=== PATIENT | male | born 1985 | race Two or more races ===

== ENCOUNTER 2021-04-02 07:59 | Emergency (ER) | payer MEDICAID, SELFPAY ==
[2021-04-02 08:02] VITALS: BP 133/86; PULSE 89; RESP 16; TEMP 36.5; O2SAT 99; BMI 30.7
[2021-04-02 09:46] VITALS: BP 138/92; PULSE 71; RESP 16; O2SAT 99
--- NOTE | 2021-04-02 09:48 | ED_ITS ---
HPI - Headache General Chief Complaint: Headache Stated Complaint: headache Time Seen by Provider: 04/02/21 09:30 Source: patient and synthetic cloth binding cutter Mode of arrival: ambulatory Limitations: language barrier History of Present Illness HPI Narrative: 35 yo male previously healthy here with complaints or right sided RIVERA x 1 week with photophobia. NO vision changes, phonophobia, nausea, vomiting, URI symptoms, sinus pressure or pain. Using naproxen, baclofen for pain in lower back prescribed by outpatient provider with continued pain. Related Data Previous Rx's Medication Instructions Recorded pdoavtmccx-gdazzhqzeamap-dzqdqjvd 1 cap PO Q6H PRN #10 cap 04/02/21 50 mg-300 mg-40 mg capsule (Fioricet) Allergies Allergy/AdvReac Type Severity Reaction Status Date / Time No Known Allergies Allergy Unverified 04/22/20 19:41 [No Known Allergies*] Review of Systems Review of Systems: Yes all other systems are reviewed and are negative Constitutional: Constitutional: Reports no additional constitutional complaints, Denies body ache(s), Denies chills, Denies fever(s), Reports headache(s) and Denies weakness Eyes: Eyes: Reports no additional eye complaints, Denies change in vision and Reports photophobia ENT: Reports system reviewed and no additional complaints, except as documented, Denies dizziness, Reports headache(s), Denies nasal congestion, Denies nasal discharge and Denies neck pain Cardiovascular: Cardiovascular: Reports no additional cardiovascular complaints, Denies chest pain, Denies leg edema and Denies dyspnea Respiratory: Respiratory: Reports no additional respiratory complaints, Denies cough and Denies dyspnea Gastrointestinal: Gastrointestinal: Reports no additional gastrointestinal complaints, Denies abdominal pain, Denies diarrhea, Denies nausea and Denies vomiting Genitourinary: Genitourinary: Denies urinary incontinence Musculoskeletal: Musculoskeletal: Reports no additional musculoskeletal complaints, Denies back pain, Denies arthralgias, Denies joint swelling, Denies neck pain, Denies numbness and Denies tingling Integumentary/Breasts: Skin/Breast: Reports system reviewed and no additional complaints, except as docu and Denies rash Neurologic: Reports system reviewed and no additional complaints, except as documented, Denies Abnormal speech present, Denies dizziness, Reports headache(s), Denies numbness, Denies tingling and Denies weakness PMFSH Past Medical History Attestation statement: The following information was validated with the patient. Source: old records reviewed and nursing notes reviewed Medical History No known health problems Social History Social History Patient Tobacco Use Status: Current everyday Tobacco user Smoked in Last 30 Days: Yes Use of substances other than those prescribed or required for medical reasons: No Advance Directives: Yes Advance Directives Information Provided: Yes Advance Directives on File: No Physical Exam Vital Signs: Vital Signs: Last Vital Signs Temp 97.7 F 04/02/21 08:02 Pulse 71 04/02/21 09:46 Resp 16 04/02/21 09:46 BP 138/92 H 04/02/21 09:46 Pulse Ox 99 04/02/21 09:46 Body Mass Index 30.7 Const: General: cooperative, healthy appearing, comfortable and no acute distress Orientation/consciousness: patient oriented x3 Limitations: no limitations HENMT: Other: no temporal artery tenderness Head: Yes normal to inspection Ears: hearing grossly normal bilaterally, TM's normal bilaterally, mastoids normal and no periauricular adenopathy General nose exam: Normal external nose present Face and sinus: Yes normal facial exam Mouth: Normal oral and palatal mucosa present, lip normal and tongue normal Throat: Yes posterior oropharynx normal Eyes: General: appearance normal, both eyes and all related structures Pupils: Equal, round and reactive pupils present Direct Ophthalmoscopy: photophobia Neck: Neck: Yes normal visual inspection, Yes full ROM, Yes no lymphadenopathy and Yes no meningeal signs Chest: Chest palpation & inspection: normal inspection of the chest Resp: Effort & Inspection: normal respiratory effort Auscultation: clear to auscultation bilaterally Cardio: Rate: regular rate Rhythm: regular rhythm Peripheral pulses: Peripheral pulses 2+ throughout GI: Inspection: Yes normal to inspection Palpation (GI): Soft to palpation and nontender Auscultation: normal bowel sounds Back/Spine/Pelvis: Thoracic/Lumbar Spine: thoracic and lumbar spine normal to inspection Skin: General skin exam: no rashes or lesions noted Neuro: General: patient oriented x3, no meningeal signs, no focal motor deficits and normal sensation to monofilament Cranial nerves: Yes CN's II-XII intact bilaterally, Yes Equal, round and reactive pupils present, Yes Bilaterally intact EOM present, Yes Nystagmus not present, Yes Normal facial strength present and Yes Midline tongue present Cognition (Neuro): normal cognition Speech: No Abnormal speech present Gait exam (Neuro): Normal gait present Motor exam (neuro): 5/5 motor strength present throughout Sensory Exam: Normal double simultaneous stimulation for sensation Extrem: General: Yes normal to inspection Course Course Course Narrative: 35 yo male here with continued right sided RIVERA with photophobia x 1 week. Normal neuro exam. Likely migraine. Will trial PO fiorcet and re-ass ess. 1100-Continued pain despite oral medications. Will place PIV and give NSB, reglan, benadryl and toradol. 1300-headache is resolved. Tolerating p.o.. Feels much improved. Likely migraine. Reviewed worrisome signs and symptoms when to return to the emergency department. Comfortable discharge home MDM - Headache Differential Diagnosis Differential diagnosis: Likely migraine and tension headache Medical Records Attestation: I reviewed the patient's medical records. Lab Data Attestation: I reviewed the patient's lab results. Discharge Plan Discharge Clinical Impression: Migraine Patient Disposition: Home, Self-Care Instructions: Migraine Headache (ED) Prescriptions: New qghdcohbwr-trwzapxfdptsu-gnva [Fioricet] 50-300-40 mg capsule 1 cap PO Q6H PRN (Reason: pain) Qty: 10 RF: 0 Referrals: [place] [Primary Care Provider] - 2 days (as needed) Print Language: Kenyan
[2021-04-02] MEDS: Butalb/Acetamin/Caff 50/325/40 TABLET 2 TAB PO (09:49)
[2021-04-02] MEDS: 0.9 % Sodium Chloride 1,000 ML 999 ML IV (11:26)
[2021-04-02] MEDS: Metoclopramide HCl 10 MG/2 ML VIAL IVPUSH (11:27)
[2021-04-02] MEDS: diphenhydrAMINE HCL 50 MG/ML VIAL 25 MG IVPUSH (11:27)
[2021-04-02] MEDS: Ketorolac Tromethamine 15 MG/ML VIAL 30 MG IVPUSH (11:27)
== END 2021-04-02 13:30 | disposition home or self-care (01) ==
PROVIDERS: Emergency Provider Emergency Medicine
DX: G43.909 Migraine, unspecified, not intractable, without status migrainosus (principal); F17.210 Nicotine dependence, cigarettes, uncomplicated
CPT/HCPCS: 96361; 96374; 96375; 99284; J1200; J1885; J2765

== ENCOUNTER 2021-08-18 14:00 | Outpatient (RCR) | payer MEDICAID, SELFPAY | END 2021-10-04 09:23 | disposition home or self-care (01) | LOC: HO.PT 14:00 | PROVIDERS: PCP Internal Medicine; Visit Provider Emergency Medicine | DX: M54.41 Lumbago with sciatica, right side (principal) | CPT/HCPCS: 97110; 97112; 97161; 97530 ==

== ENCOUNTER 2022-03-29 04:31 | Emergency (ER) | payer MEDICAID, SELFPAY ==
--- NOTE | ~2022-03-29 | US_ITS ---
EXAMINATION: US SCROTUM CLINICAL INFORMATION: Lump of left scrotum. COMPARISON: None TECHNIQUE: A sonogram of the scrotum was performed assessing bartlett-scale appearance and color Doppler flow. Spectral Doppler analysis of the arterial and venous flow were performed in the testes bilaterally. FINDINGS: The testicles have normal contour and echotexture. No testicular microlithiasis or mass. The right testicle measures 4.1 x 2 x 2.6 cm and left testicle 3.7 x 2.3 x 2.8 cm. The color Doppler images with spectral waveforms show presence of normal symmetric arterial and venous flow within each testicle. Incidentally noted is a small appendix of the epididymis in the right scrotum. No right-sided scrotal mass. A small cyst measuring up to 0.4 cm maximum dimension is present in the left epididymal head. Otherwise, the left and epididymis are unremarkable. Small left hydrocele is present. No evidence of a mass or hypervascularity along the left spermatic cord, which corresponds to the region of palpable concern according to the cardiac cath technologist. No scrotal hernia is seen. US/US scrotum IMPRESSION: * The testicles are normal. * Small cyst in the left epididymal head. * Small left-sided hydrocele is present.
[2022-03-29 04:42] VITALS: BP 137/75; PULSE 76; RESP 20; TEMP 37.2; O2SAT 98; BMI 70.4
[2022-03-29 06:38] LABS: Hematocrit 46.1 % (42.0-52.0); Hemoglobin 15.6 g/dl (14.0-18.0); Mean Corpuscular HGB Conc 33.8 g/dl (31.0-36.0); Mean Corpuscular Hemoglobin 29.4 pg (27.0-33.0); Mean Platelet Volume 9.5 fL (9.4-12.4); Platelet Count 365 X10*3/uL (160-400); Red Cell Distribution Width 13.2 % (11.0-16.0); White Blood Count 11.9 X10*3/uL (4.8-10.8)
[2022-03-29 06:55] LABS: Alanine Aminotransferase 25 U/L (0-40); Albumin Level 4.3 g/dL (3.5-5.0); Alkaline Phosphatase 71 U/L (39-117); Anion Gap 15 (12-20); Aspartate Amino Transferase 15 U/L (5-37); Bilirubin Total < 0.2 mg/dL (0.0-1.0); Blood Urea Nitrogen 12 mg/dL (9-16); Calcium 9.6 mg/dL (8.4-10.2); Carbon Dioxide 24 mmol/L (22-29); Chloride 103 mmol/L (96-108); Creatinine Clr Calc Pharmacy 209.1; Estimated Glomerular Filt Rate > 60; Glucose Random 97 mg/dL (60-115); Potassium 3.9 mmol/L (3.3-5.1); Sodium 138 mmol/L (135-145); Total Protein 7.8 g/dL (6.5-8.0)
--- NOTE | 2022-03-29 10:27 | ED.GENADULT ---
HPI - General Adult General Chief complaint: General Medical Stated complaint: Abd pain Time Seen by Provider: 03/29/22 09:18 Source: patient Mode of arrival: ambulatory Limitations: language barrier ( Northern Irish-speaking certified medical assistant utilized) History of Present Illness HPI narrative: patient presents to the emergency department for evaluation of a lump to his left scrotum. He states it is only felt when he touches the scrotum. First noticed this about 3-4 days ago. Denies any pain, swelling, redness, rash, lesions, inability to urinate, abnormal penile discharge, concern for sexually transmitted infections. Denies any prior history of similar in the past. Related Data Previous Rx's Medication Instructions Recorded spmdkmhssc-zydwokidadhqd-xnwtzxmo 1 cap PO Q6H PRN pain #10 caps 04/02/21 50 mg-300 mg-40 mg capsule (Fioricet) Allergies Allergy/AdvReac Type Severity Reaction Status Date / Time No Known Allergies Allergy Unverified 04/22/20 19:41 [No Known Allergies*] Review of Systems Review of Systems: Genitourinary: positive scrotal lump Yes all other systems are reviewed and are negative [facility], [facility] Past Medical History Attestation statement: The following information was validated with the patient. Source: old records reviewed Medical History No known health problems Social History Social History Alcohol intake: never Patient Tobacco Use Status: Current everyday Tobacco user Use of substances other than those prescribed or required for medical reasons: No Advance Directives: No Advance Directives Information Provided: No Physical Exam ED Vital Signs: Vital Signs - 24 hr 03/29/22 04:42 03/29/22 11:32 Temperature 99.0 F 97.8 F Pulse Rate 76 72 Respiratory Rate 20 17 Blood Pressure 137/75 128/82 Pulse Oximetry 98 96 Oxygen Delivery Method Room Air Room Air BMI result Body Mass Index 70.4 Appearance: Alert.?Oriented to person, place and time. No acute distress.?Normal affect. Eyes: Pupils equal, round and reactive to light.? ENT: Pharynx normal.?? Neck: Normal inspection.? Neck supple.?? CVS: Heart sounds normal. Normal heart rate and rhythm.? Pulses normal.?? Respiratory: No respiratory distress.? Lung sounds clear to auscultation bilaterally?? Abdomen: Soft and non-tender. Normoactive bowel sounds. genitourinary: ED RN Gustavo for tire assembler, 2cm palpable soft mobile nontender lump to the left scrotum Skin: Skin warm and dry.? Normal skin color.? Extremities: No lower extremity edema.? Neuro: Moves all extremities spontaneously. Sensation intact bilaterally. Ambulates with normal steady gait. Course Course Course Narrative: patient is a 36-year-old male with no significant past medical history presents emergency department for evaluation of a lump to the left scrotum. Physical exam consistent with a cyst like structure. not consistent with varicocele. No concern for torsion. Reevaluation(s) Reevaluation #1: Ultrasound reveals a small cyst in the left epididymal head small left-sided hydrocele. Discussed these findings with patient. Likely to resolve on own. However given contact information to arrange for follow-up with Urology. Advised no heavy lifting, supportive underwear. Discussed worrisome signs and symptoms return back to emergency department for. All questions were answered, patient was discharged home in stable condition. Time: 11:59 Medical Decision Making Medical Records Medical records reviewed: Yes I reviewed the patient's medical records. Lab Data Lab results reviewed: Yes I reviewed the patient's lab results. Result diagrams: 03/29/22 06:32 03/29/22 06:32 Labs: Lab Results 03/29/22 03/29/22 Range/Units 06:32 06:32 WBC 11.9 H (4.8-10.8) X10*3/uL RBC 5.30 (4.60-5.80) X10*6/uL Hgb 15.6 (14.0-18.0) g/dl Hct 46.1 (42.0-52.0) % MCV 87.0 (80.0-98.0) fL MCH 29.4 (27.0-33.0) pg MCHC 33.8 (31.0-36.0) g/dl RDW 13.2 (11.0-16.0) % Plt Count 365 (160-400) X10*3/uL MPV 9.5 (9.4-12.4) fL Absolute Nucleated RBC 0.000 (0.0-0.012) X10*3/uL Nucleated RBC % (auto) 0.0 (0.0-0.2) /100WBC Sodium 138 (135-145) mmol/L Potassium 3.9 (3.3-5.1) mmol/L Chloride 103 (96-108) mmol/L Carbon Dioxide 24 (22-29) mmol/L Anion Gap 15 (12-20) BUN 12 (9-16) mg/dL Creatinine 0.88 (0.5-1.4) mg/dL Estim Creat Clear Calc 209.1 Estimated GFR > 60 Random Glucose 97 (60-115) mg/dL Calcium 9.6 (8.4-10.2) mg/dL Total Bilirubin < 0.2 (0.0-1.0) mg/dL AST 15 (5-37) U/L ALT 25 (0-40) U/L Alkaline Phosphatase 71 (39-117) U/L Total Protein 7.8 (6.5-8.0) g/dL Albumin 4.3 (3.5-5.0) g/dL Imaging Data scrotal US: Radiologist's impression: US/US scrotum IMPRESSION: *? The testicles are normal. *? Small cyst in the left epididymal head. *? Small left-sided hydrocele is present. Discharge Plan Discharge Clinical Impression: Cyst of scrotum, Hydrocele Patient Disposition: Home, Self-Care Instructions: Hydrocele (ED), Cyst (ED) Additional Instructions: ultrasound reveals that you have a cyst to the left scrotum, and a small hydrocele which is a fluid collection this will most likely resolve on its own, however you have been given a referral to follow-up with Urology, please contact their office to arrange for an appointment avoid any heavy lifting for 1 week. Wear supportive underwear to prevent worsening, and may aid in comfort if you develop pain Prescriptions: No Action gqgyfajmtz-rzkvjoaadonzp-mchw [Fioricet] 50-300-40 mg capsule 1 cap PO Q6H PRN (Reason: pain) Qty: 10 0RF Interventions: ED Discharge Assessment Last Done: 03/29/22 12:29 Discharge Date/Time: 03/29/22 12:29 Print Language: Northern Irish
[2022-03-29 11:32] VITALS: BP 128/82; PULSE 72; RESP 17; TEMP 36.6; O2SAT 96
== END 2022-03-29 12:29 | disposition home or self-care (01) ==
PROVIDERS: Emergency Provider Emergency Medicine
DX: N43.3 Hydrocele, unspecified (principal); L72.9 Follicular cyst of the skin and subcutaneous tissue, unspecified; N50.9 Disorder of male genital organs, unspecified; F17.210 Nicotine dependence, cigarettes, uncomplicated; Z71.6 Tobacco abuse counseling
CPT/HCPCS: 36415; 76870; 80053; 85027; 99284

== ENCOUNTER → 2022-06-08 13:34 | Outpatient (BNVA) | payer MEDICAID, SELFPAY | PROVIDERS: Visit Provider Urology | DX: N52.9 Male erectile dysfunction, unspecified (principal); N43.40 Spermatocele of epididymis, unspecified | CPT/HCPCS: 99202 ==

== ENCOUNTER 2023-01-21 03:59 | Emergency (ER) | payer MEDICAID, SELFPAY ==
[2023-01-21 04:01] VITALS: BP 125/77; PULSE 75; RESP 18; TEMP 36.1; O2SAT 99; BMI 29.5
[2023-01-21 06:55] VITALS: BP 118/65; PULSE 61; RESP 14; TEMP 36.8; O2SAT 96
--- NOTE | 2023-01-21 07:32 | ED.GENADULT ---
HPI - General Adult General Chief complaint: Allergic Reaction Stated complaint: allergic reaction? Time Seen by Provider: 01/21/23 06:41 Source: patient and supervisor covering and lining Mode of arrival: ambulatory Limitations: language barrier History of Present Illness HPI narrative: Patient is a 37-year-old male presenting with rash to left lateral and anterior thigh. He describes the rash as pruritic, denies pain. Denies rash in any other areas. Denies any shortness of breath. Denies any swelling to lips, tongue, or throat. Denies abdominal pain, nausea, or vomiting. States he lives alone. Denies recent travel or staying at anyone else's home. States he gave his lizards to his mother, as he was unsure if they were related to his rash. MD complaint: rash Onset (ago): day(s) Location: lower extremity Radiation: non-radiation Severity: mild Relieving factors: none Exacerbating factors: none Associated symptoms: denies other symptoms Treatments prior to arrival: none Related Data Previous Rx's Medication Instructions Recorded pumbczfkmj-mmqqufuodkpfg-opxetizh 1 cap PO Q6H PRN pain #10 caps 04/02/21 50 mg-300 mg-40 mg capsule (Fioricet) triamcinolone acetonide 0.1 % 1 appl topical BID #15 grams 01/21/23 topical cream Allergies Allergy/AdvReac Type Severity Reaction Status Date / Time No Known Allergies Allergy Verified 06/05/22 15:25 [No Known Allergies*] Review of Systems Review of Systems: As per HPI. Yes all other systems are reviewed and are negative Constitutional: Constitutional: Reports as per HPI FOR[facility]LY [facility] Past Medical History Medical History No known health problems Social History Social History Alcohol intake: never Patient Tobacco Use Status: Current everyday Tobacco user Advance Directives: No Advance Directives Information Provided: No Physical Exam ED Vital Signs: Vital Signs - 24 hr 01/21/23 04:01 01/21/23 06:55 Temperature 97 F 98.3 F Pulse Rate 75 61 Respiratory Rate 18 14 Blood Pressure 125/77 118/65 Pulse Oximetry 99 96 Oxygen Delivery Method Room Air Room Air BMI result Body Mass Index 29.5 Vital signs have been reviewed and appear to be correct. Blood pressure normal. Heart rate normal. Respiratory rate normal. Temperature normal. Oxygen saturation normal. Const General: cooperative, healthy appearing and no acute distress Orientation/consciousness: oriented to person, oriented to place, oriented to time and patient oriented x3 Limitations: no limitations HENVA Head: Yes normocephalic and Yes atraumatic Ears: external ears normal General nose exam: Normal external nose present Face and sinus: Yes face symmetric Mouth: Normal oral and palatal mucosa present, oropharynx normal and moist mucous membranes Throat: Yes posterior oropharynx normal, Yes uvula midline, No uvula laterally displaced and No uvular edema Eyes Pupils: Equal, round and reactive pupils present Neck Neck: Yes normal visual inspection and Yes supple Resp Effort & Inspection: normal respiratory effort and able to speak in complete sentences Auscultation: clear to auscultation bilaterally Cardio Rate: regular rate Rhythm: regular rhythm Heart sounds: S1 normal heart sound present and S2 normal heart sound present GI Palpation (GI): Soft to palpation and nontender Auscultation: normoactive bowel sounds General: Yes no CVA tenderness Back/Spine/Pelvis Back: no CVA tenderness Skin General skin exam: elasticity normal and turgor normal Rashes: rashes noted papules left lateral upper leg size (2-3mm), arrangement clustered, color red and surface blanching; fluctuant not assessed and nontender Full body images: 1. erythematous papules 2. erythematous papules Neuro General: oriented to person, oriented to place, oriented to time, patient oriented x3, moves all extremities, no focal motor deficits and CN's II-XI intact bilaterally Cranial nerves: Yes Equal, round and reactive pupils present Cognition (Neuro): normal cognition Extrem General: Yes full ROM, Yes no pedal edema and Yes no calf tenderness Psych Mental Status: mental status grossly normal Affect: normal affect Thought process: Normal thought process present Medical Decision Making Medical Decision Making MDM Narrative: Patient is a 37-year-old male presenting with rash to left lateral and anterior thigh. On exam patient is awake, A+Ox3, nontoxic appearing, VS WNL, afebrile, LS CTA throughout, oropharynx normal, abdomen soft and nontender, erythematous papules in clusters to anterior and lateral left upper leg consistent with bed bug bites. Differential includes other bug bites, contact dermatitis. No oral lesions, no rash to palms or soles, no rash to any other areas, negative Nikolsky's, no bullae or pain out of proportion. Unlikely DRESS, endocarditis, TTP, DIC, necrotizing fasciitis, SSSS, TEN/SJS, TSS, anaphylaxis. Patient advised to wash all sheets, blankets and clothing in hot water. Prescribed triamcinolone cream to apply topically for itching and patient advised he can also use an OTC antihistamine. Instructed patient to follow up with PCP and return precautions discussed at bedside. Patient verbalized understanding of and agreement with plan. Differential Diagnosis Differential Diagnoses: The differential diagnosis associated with the presentation includes As above. External Record Review External record reviewed: Inpatient record, Office record and Outpatient record Prescription Management I considered prescription management with: Other Discharge Plan Discharge Clinical Impression: Bed bug bite Patient Disposition: Home, Self-Care Additional Instructions: Hoy lo evaluaron en el departamento de emergencias por un sarpullido en la pierna que es consistente con las picaduras de chinches. Le est?n recetando chi crema que puede aplicar para ayudar a disminuir la picaz?n. Tambi?n puede aysha un medicamento para la alergia de venta sina sofia Claritin o Zyrtec para ayudar con la picaz?n. Lava todas tus s?anjum, cobijas y ropa con platinum y jab?n. Regrese al departamento de emergencias si experimenta un sarpullido que empeora o se propaga, dolor incontrolable, fiebre de 100.4F o m?s, dificultad para respirar, secreci?n de shoemaker sarpullido o cualquier otro s?ntoma preocupante. Prescriptions: New triamcinolone acetonide 0.1 % cream 1 appl topical BID Qty: 15 0RF No Action onhammnsij-pxthesqknpfot-nzkx [Fioricet] 50-300-40 mg capsule 1 cap PO Q6H PRN (Reason: pain) Qty: 10 0RF Print Language: French
== END 2023-01-21 08:11 | disposition home or self-care (01) ==
PROVIDERS: Emergency Provider Student in an Organized Health Care Education/Training Program
DX: S70.362A Insect bite (nonvenomous), left thigh, initial encounter (principal); W57.XXXA Bitten or stung by nonvenomous insect and other nonvenomous arthropods, initial encounter; F17.200 Nicotine dependence, unspecified, uncomplicated; Y93.84 Activity, sleeping; Y92.032 Bedroom in apartment as the place of occurrence of the external cause; Y99.9 Unspecified external cause status
CPT/HCPCS: 99283; 99284